=== PATIENT | male | born 1980 | race Two or more races ===

== ENCOUNTER → 2024-08-11 12:25 | Outpatient (BNVA) | payer OTHER, SELFPAY | PROVIDERS: Visit Provider Physician Assistant | DX: L24.89 Irritant contact dermatitis due to other agents (principal) | CPT/HCPCS: 99203 ==

== ENCOUNTER → 2024-08-15 11:06 | Outpatient (BNVA) | payer OTHER, SELFPAY | PROVIDERS: Visit Provider Registered Nurse | DX: L24.89 Irritant contact dermatitis due to other agents (principal) | CPT/HCPCS: 99213 ==